=== PATIENT | female | born 1975 | race Caucasian/White ===

== ENCOUNTER 2023-03-19 07:47 | Day surgery (SDC) | payer BC ==
[2023-03-19] MEDS ORDERED: MIDAZOLAM HCL 5 MG/5 ML VIAL ONE (08:26)
[2023-03-19] MEDS ORDERED: fentaNYL CITRATE/PF 100 MCG/2 ML AMP ONE (08:26)
[2023-03-19 12:08] VITALS: BP_SYST 119
== END 2023-03-19 11:32 | disposition home or self-care (01) ==
LOC: SMU 07:47 → SDS 07:47
PROVIDERS: ATTEND Internal Medicine
DX: Z12.11 Encounter for screening for malignant neoplasm of colon (principal); K57.30 Diverticulosis of large intestine without perforation or abscess without bleeding; K64.8 Other hemorrhoids; E11.9 Type 2 diabetes mellitus without complications; I10 Essential (primary) hypertension; E78.5 Hyperlipidemia, unspecified; Z90.49 Acquired absence of other specified parts of digestive tract; Z79.84 Long term (current) use of oral hypoglycemic drugs; Z79.82 Long term (current) use of aspirin; Z79.899 Other long term (current) drug therapy
CPT/HCPCS: 45378; 82962; 84703; 36415; 99152; G0378; J2250; J3010

== ENCOUNTER 2024-02-03 07:19 | Day surgery (SDC) | payer BC, OTHER ==
[~2024-02-03] VITALS: Ht 149.9 cm; Wt 105.7 kg
[2024-02-03] MEDS ORDERED: fentaNYL CITRATE/PF 100 MCG/2 ML AMP ONE (07:43)
[2024-02-03] MEDS ORDERED: MIDAZOLAM HCL 5 MG/5 ML VIAL ONE (07:44)
[2024-02-03 09:00] VITALS: O2SAT 98
[2024-02-03 14:27] VITALS: BP_SYST 144; PULSE 75; RESP 20
== END 2024-02-03 10:31 | disposition home or self-care (01) ==
LOC: SDS 07:19 → SMU 07:21 → SDS 10:31
PROVIDERS: ATTEND Internal Medicine
DX: Z09 Encounter for follow-up examination after completed treatment for conditions other than malignant neoplasm (principal); K63.5 Polyp of colon; K57.30 Diverticulosis of large intestine without perforation or abscess without bleeding; K64.8 Other hemorrhoids; I10 Essential (primary) hypertension; E11.9 Type 2 diabetes mellitus without complications; E78.5 Hyperlipidemia, unspecified; Z90.49 Acquired absence of other specified parts of digestive tract; Z79.82 Long term (current) use of aspirin; Z79.899 Other long term (current) drug therapy
CPT/HCPCS: 45380; 82948; 88305; 99152; G0378; J2250; J3010